=== PATIENT | female | born 1950 | race Caucasian/White ===

== ENCOUNTER 2017-03-13 06:13 | Day surgery (SDC) | payer OTHER ==
[~2017-03-13] VITALS: Ht 157.5 cm; Wt 108.6 kg
[~2017-03-13 06:13] MED LIST: SODIUM CHLORIDE 0.9% 1,000 ML IV ONE
[2017-03-13] MEDS ORDERED: LEVO100 PO (07:30)
[2017-03-13] MEDS ORDERED: MONT10TA21 PO (07:30)
[2017-03-13] MEDS ORDERED: DOXE10CA2 PO (07:30)
[2017-03-13] MEDS ORDERED: SERT100T12 PO (07:30)
[2017-03-13] MEDS ORDERED: SIMV-260 PO (07:30)
[2017-03-13] MEDS ORDERED: FURO40 PO (07:30)
[2017-03-13] MEDS ORDERED: KDUR20 PO (07:30)
[2017-03-13] MEDS ORDERED: OMEP20 PO (07:30)
[2017-03-13] MEDS ORDERED: FLUT16H NASAL (07:30)
[2017-03-13] MEDS ORDERED: BECL8.7A7 PO (07:30)
[2017-03-13] MEDS ORDERED: ACET500C4 PO (07:30)
[2017-03-13] MEDS ORDERED: ASPI-1182 PO (07:30)
[2017-03-13] MEDS ORDERED: ALBU8.5H8 IH (07:30)
[2017-03-13] MEDS ORDERED: METO50 PO (07:30)
[2017-03-13] MEDS ORDERED: LORA10TA7 PO (07:30)
[2017-03-13] MEDS ORDERED: TRIA15CR48 TP (07:33)
[2017-03-13] MEDS ORDERED: MIDAZOLAM HCL 2 MG/2 ML VIAL ONE (07:48)
[2017-03-13] MEDS ORDERED: FentaNYL CITRATE-PF 100 MCG/2 ML VIAL ONE (07:48)
[2017-03-13] MEDS ORDERED: MethylPREDNISolone SOD SUCC 125 MG/2 ML VIAL IVP ONE (08:45)
[2017-03-13] MEDS ORDERED: MethylPREDNISolone SOD SUCC 125 MG/2 ML VIAL ONE (09:11)
[2017-03-13] MEDS ORDERED: OXYGEN THERAPY IH SCH (20:00)
== END 2017-03-13 10:10 | disposition home or self-care (01) ==
LOC: SURGERY 06:13
PROVIDERS: ATTEND Internal Medicine Critical Care Medicine
DX: J38.4 Edema of larynx (principal); B37.0 Candidal stomatitis; I10 Essential (primary) hypertension; J44.9 Chronic obstructive pulmonary disease, unspecified; K21.9 Gastro-esophageal reflux disease without esophagitis; Z87.891 Personal history of nicotine dependence; Z98.890 Other specified postprocedural states; Z90.710 Acquired absence of both cervix and uterus; Z79.01 Long term (current) use of anticoagulants; Z79.899 Other long term (current) drug therapy; Z86.73 Personal history of transient ischemic attack (TIA), and cerebral infarction without residual deficits; Z79.82 Long term (current) use of aspirin
CPT/HCPCS: 31623; 31624; 71010; 87015 ×2; 87070; 87101; 87147; 87205; 87220; 88108; 88312; 93005; J2250; J2930; J3010; J7030